=== PATIENT | male | born 1965 | race Caucasian/White ===

== ENCOUNTER 2022-04-02 09:49 | Emergency (ER) | payer BC ==
[~2022-04-02] VITALS: Ht 175.3 cm; Wt 93.9 kg
[~2022-04-02 09:49] MED LIST: INSU100V27 SQ
[2022-04-02 09:53] VITALS: BP 161/97
--- NOTE | 2022-04-02 09:55 | NUR ---
DR DRUMMOND AT BEDSIDE
== END 2022-04-02 10:05 | disposition home or self-care (01) ==
LOC: ER 09:51
DX: M54.9 Dorsalgia, unspecified (principal); I10 Essential (primary) hypertension; E11.9 Type 2 diabetes mellitus without complications; F17.200 Nicotine dependence, unspecified, uncomplicated; Z79.4 Long term (current) use of insulin